=== PATIENT | female | born 1940 | race Caucasian/White ===

== ENCOUNTER 2016-07-26 07:52 | Day surgery (SDC) | payer MEDICARE ==
[~2016-07-26] VITALS: Ht 152.4 cm; Wt 79.1 kg
[~2016-07-26 07:52] MED LIST: ACETAMINOPHEN 500 MG TAB (TYLENOL) PO PRN; CHONDROITIN/HYALURONATE (DISCOVISC) 1 ML SYR IO ONE; OXB5T PO; PHENYLEPHRINE/KETOROLAC 4 ML VIAL IO ONE; SIMV40TA2 PO; SODIUM CHLORIDE FLUSH 3 ML SYR IV PRN; TETRACAINE 0.5% OPHTHALMIC SOLUTION 2 ML BTL ONE; diphenhydrAMINE 50 MG/ML INJ (BENADRYL) IV PRN
--- OUTSIDE RECORDS SUMMARY | 2016-07-26 07:56 | XMS REPORT | Continuity of Care Document ---
Author Author [facility] Address Unknown Phone Unavailable Care Team Providers Care Cutter Inspector Name Role Phone ZHOU PINEDA MD PCP [phone] Insurance Providers Payer Name Policy Number Subscriber Name Relationship Medicare A And B [id number] Rosa Waite 17 Self / Same As Patient [employer] [facility] Supp [id number] GunnerRosa coppola 18 Self / Same As Patient Advance Directives Directive Response Recorded Date/Time Advanced Directives Yes 07/05/16 11:02am Type Durable Power of Lawyers 07/05/16 11:02am Type Living Will 07/05/16 11:02am Other Ana Laura Waite-daughter 07/05/16 11:02am Problems Active Problems Medical Problem Onset Date Status Cataract of left eye Unknown Acute Medications Current Home Medications Medication Dose Units Route Directions Days/Qty Instructions Start Date Oxybutynin Chloride 5 Mg 5 Mg ORAL Twice A Day 60 07/01/16 Simvastatin (Zocor) 40 Mg 40 Mg ORAL Bedtime 90 07/01/16 Social History Social History Problem Response Recorded Date/Time Onset Date Status Occupation or Former Occupation retired 07/05/2016 11:26am Query Response Start Date Stop Date Smoking Status Never smoker Hospital Discharge Instructions No hospital discharge instructions. Plan of Care Discharge Date 07/05/16 1:23pm Prescriptions See Medication Section Functional Status No functional status results. Allergies, Adverse Reactions, Alerts Allergen Type Severity Reaction Status Last Updated Ibuprofen Allergy Unknown Active 07/02/16 Immunizations No immunization records. Vital Signs Acute Vital Signs Vital Response Date/Time Temperature (Fahrenheit) 97.4 07/05/2016 1:07pm Pulse 73 bpm 07/05/2016 1:07pm Respirations 18 07/05/2016 1:07pm Height 5 ft 0 in Weight 173 lb Body Mass Index 33.0 kg/m^2 Results No known relevant diagnostic tests, laboratory data and/or discharge summary. Procedures No known history of procedures. Encounters Encounter Location Arrival/Admit Date Discharge/Depart Date Attending Provider Departed [facility] 07/05/16 9:55am 07/05/16 1: 23pm JUSTIN BUCKLEY MD Recent Diagnosis Cataract of left eye
[2016-07-26 08:01] VITALS: BP 176/86
[2016-07-26] MEDS: LIDOCAINE 3.5% OPHTH GEL (AKTEN) 1 ML BTL OS SCH ×4 (08:25→09:00)
[2016-07-26] MEDS: CATARACT PRE-OP EYE DROPS 0.5ML SYRINGE OS SCH ×3 (08:42→09:01)
[2016-07-26] MEDS: HOME MEDICATION OS SCH ×3 (08:42→09:01)
[2016-07-26] MEDS ORDERED: SODIUM CHLORIDE VIAL (PF) 10 ML IV ONE (09:49)
[2016-07-26] MEDS ORDERED: MIDAZOLAM 2 MG/2 ML (VERSED) VIAL ONE (09:49)
[2016-07-26] MEDS ORDERED: diphenhydrAMINE 50 MG/ML INJ (BENADRYL) ONE (09:59)
[2016-07-26] MEDS ORDERED: ONDANSETRON 2 MG/ML (Z0FRAN) 2 ML VIAL ONE (09:59)
[2016-07-26 10:31] VITALS: BP 181/88
--- NOTE | 2016-07-26 10:47 | NUR ---
VIGAMOX GIVEN TO PATIENT'S FAMILY. WITNESSED BY TRISTON CARDENAS. PATIENT'S FAMILY PUTS VIGAMOX INTO BOX.
== END 2016-07-26 11:04 | disposition home or self-care (01) ==
LOC: ASC 07:52
PROVIDERS: ATTEND Ophthalmology
PROC: 08RK3JZ Replacement of Left Lens with Synthetic Substitute, Percutaneous Approach (ICD-10-PCS; principal; 2016-07-26)
DX: H26.9 Unspecified cataract (principal); H53.8 Other visual disturbances; E78.5 Hyperlipidemia, unspecified
CPT/HCPCS: 66984; A9270; C9447; J1200; J2250; J2405; J7050; V2632

== ENCOUNTER 2016-08-09 09:08 | Day surgery (SDC) | payer MEDICARE ==
[~2016-08-09] VITALS: Ht 152.4 cm; Wt 79.0 kg
[~2016-08-09 09:08] MED LIST changes: -OXB5T PO; -SIMV40TA2 PO
[2016-08-09 09:17] VITALS: BP_SYST 148; BP_SYST 184; BP_DIAS 79; BP_DIAS 88
[2016-08-09] MEDS: LIDOCAINE 3.5% OPHTH GEL (AKTEN) 1 ML BTL OD SCH ×4 (09:47→10:20)
[2016-08-09] MEDS: HOME MEDICATION OD SCH ×3 (10:03→10:20)
[2016-08-09] MEDS: CATARACT PRE-OP EYE DROPS 0.5ML SYRINGE OD SCH ×4 (10:03→10:50)
[2016-08-09] MEDS ORDERED: ONDANSETRON 2 MG/ML (Z0FRAN) 2 ML VIAL ONE (11:09)
[2016-08-09] MEDS ORDERED: MIDAZOLAM 2 MG/2 ML (VERSED) VIAL ONE (11:09)
[2016-08-09] MEDS ORDERED: diphenhydrAMINE 50 MG/ML INJ (BENADRYL) ONE (11:09)
[2016-08-09] MEDS ORDERED: ALFENTANIL 1,000 MCG/2 ML AMP IV ONE (11:30)
[2016-08-09 11:51] VITALS: BP 174/91
[2016-08-09 12:26] VITALS: BP 141/93
== END 2016-08-09 12:26 | disposition home or self-care (01) ==
LOC: ASC 09:08
PROVIDERS: ATTEND Ophthalmology
DX: H26.9 Unspecified cataract (principal); H53.8 Other visual disturbances; E78.5 Hyperlipidemia, unspecified
CPT/HCPCS: 66984; A9270; C9447; J1200; J2250; J2405; V2632